=== PATIENT | female | born 1980 | race Caucasian/White ===

== ENCOUNTER 2022-04-20 00:51 | Emergency (ER) | payer SELFPAY ==
[~2022-04-20] VITALS: Ht 167.6 cm; Wt 59.0 kg
[2022-04-20] MEDS ORDERED: IV NORMAL SALINE 1000 ML BAG IV ONE (01:00)
[2022-04-20 01:28] LABS: HEMATOCRIT 40.9 % (31.2-41.9); MEAN CORPUSCULAR HEMOGLOBIN 28.5 uug (24.7-32.8); MEAN CORPUSCULAR VOLUME 84.5 fL (75.5-95.3); PLATELET COUNT (AUTO) 318 K/uL (179-408)
[2022-04-20 01:35] LABS: CARBON DIOXIDE 29 mmol/L (21-32); CHLORIDE 98 mmol/L (98-107); CREATININE 0.7 mg/dL (0.6-1.3); GLUCOSE 114 mg/dL (74-106); POTASSIUM 3.7 mmol/L (3.5-5.1); UREA NITROGEN, BLOOD 14 mg/dL (7-18)
[2022-04-20 01:41] LABS: ALANINE AMINOTRANSFERASE 16 U/L (14-59); ALKALINE PHOSPHATASE 69 U/L (50-136); ASPARTATE AMINOTRANSFERASE 12 U/L (15-37); BILIRUBIN,DIRECT 0.2 mg/dL (0.0-0.2); BILIRUBIN,TOTAL 0.9 mg/dL (0.2-1.0); TOTAL PROTEIN, SERUM 7.8 g/dL (6.4-8.2)
[2022-04-20 01:43] LABS: ACETAMINOPHEN < 2.0 ug/mL (10-30)
[2022-04-20 01:51] LABS: ETHANOL < 3 MG/DL (0-0)
--- NOTE | 2022-04-20 07:16 | NUR ---
received pt in bed, arousable but drowsy. Requested to provide urine, pt declined.
--- NOTE | 2022-04-20 08:39 | NUR ---
Pt is awake A/O x3, able to ambulate w/ steady gait. Pt declined to give urine.
--- NOTE | 2022-04-20 08:42 | NUR ---
Pt refused to have EKG, Saline lock, Dr Rubio made aware.
--- NOTE | 2022-04-20 09:02 | NUR ---
Dr Rubio spoke to pt, regarding medical care and drug use.
--- NOTE | 2022-04-20 09:21 | NUR ---
Patient discharged to home in stable condition. Written and verbal after care instructions given. Patient verbalizes understanding of instructions, p-t refused to sign d/c paperwork. Stressed follow up or return to ER for worsening s/s. Pt called taxi, pt left ER w/ steady gait.
[2022-04-20 09:22] VITALS: BP 120/77
== END 2022-04-20 09:23 | disposition home or self-care (01) ==
LOC: ER 00:55
DX: R40.4 Transient alteration of awareness (principal); V48.5XXA Car driver injured in noncollision transport accident in traffic accident, initial encounter; Y92.410 Unspecified street and highway as the place of occurrence of the external cause; R03.0 Elevated blood-pressure reading, without diagnosis of hypertension
CPT/HCPCS: 36415; 70450; 83605; 85025; 93005; A4663; G0480